=== PATIENT | female | born 1995 | race Caucasian/White ===

== ENCOUNTER → 2017-03-19 | Day surgery (SDC) | payer OTHER ==
[2017-03-19 12:17] LABS: HCT 41.4 % (37.0-47.0); HGB 14.4 g/dl (12.5-16.0); MCH 29.7 pg (25.0-31.0); MCHC 34.8 g/dL (32.0-36.0); MCV 85.4 fL (78.0-100.0); MPV 11.3 fL (6.0-9.5); RBC 4.85 M/uL (4.20-5.40); RDW 12.9 % (11.5-14.0); WBC 5.3 K/uL (4.0-10.5)
[2017-03-19 12:29] LABS: INR 1.02 (0.9-1.2)
[2017-03-19 12:59] LABS: ALBUMIN 4.4 g/dL (3.5-5.0); BILIRUBIN - TOTAL 0.7 mg/dL (0.1-1.0); CREATININE 0.8 mg/dL (0.5-1.0); GLOBULIN (CALCULATION) 3.1 g/dL (2.2-4.2); POTASSIUM 4.4 mmol/L (3.5-5.1); TOTAL PROTEIN 7.5 g/dL (6.4-8.3)
[2017-03-19 13:06] LABS: FOLIC ACID (SERUM) > 20.0 ng/mL (4.4-31.0)
[2017-03-19 13:16] LABS: VITAMIN D (25-OH) 13.06 ng/mL (20.0-)
== END | disposition home or self-care (01) ==
LOC: FAS 08:45
PROVIDERS: Surgery
DX: K29.50 Unspecified chronic gastritis without bleeding (principal); E66.01 Morbid (severe) obesity due to excess calories; Z68.42 Body mass index [BMI] 45.0-49.9, adult; K21.9 Gastro-esophageal reflux disease without esophagitis; Z79.2 Long term (current) use of antibiotics; Z79.899 Other long term (current) drug therapy; Z98.890 Other specified postprocedural states
CPT/HCPCS: 36415; 80053; 80061; 82306; 82607; 82728; 82746; 83036; 83540; 83550; 84425; 84443; 84703; 85610; 85730; 88305; 88312; J2704